=== PATIENT | female | born 1960 | race Caucasian/White ===

== ENCOUNTER 2020-09-22 10:05 | Emergency (ER) | payer OTHER ==
--- NOTE | 2020-09-22 10:29 | EDM.PDOC ---
ED HPI GENERAL MEDICAL PROBLEM - General Chief Complaint: Lower Extremity Injury/Pain Stated Complaint: L KNEE PAIN Time Seen by Provider: 09/22/20 10:27 - History of Present Illness INITIAL COMMENTS - FREE TEXT/NARRATIVE: 60-year-old female presents the emergency room with a red painful swollen area on her left lower leg. Patient noticed some redness discomfort and swelling on her left lower leg. This is developed over the last day. This is right over the tibial tuberosity. Patient has not had any fevers or chills. The patient has felt a little ill no nausea or vomiting just has not felt well over the last day. About a week and a half ago the patient had a melanoma removed from her left forearm and the patient is wondering if perhaps this is related. Patient is visiting here from [place]. - Related Data Allergies Allergy/AdvReac Type Severity Reaction Status Date / Time No Known Allergies Allergy Verified 09/22/20 10:17 Home Meds: Home Meds Sulfamethoxazole/Trimethoprim [Bactrim Ds Tablet] 1 each PO BID #20 tablet 09/22/20 [Rx] Past Medical History Oncologic (Cancer) History: Reports: Other (See Below) Other Oncologic History: melanoma - Infectious Disease History Infectious Disease History: Reports: Chicken Pox, Mononucleosis - Past Surgical History Musculoskeletal Surgical History: Reports: Hip Replacement Dermatological Surgical History: Reports: Other (See Below) Social & Family History - Family History Family Medical History: No Pertinent Family History - Tobacco Use Tobacco Use Status *Q: Never Tobacco User - Recreational Drug Use Recreational Drug Use: No Review of Systems - Review of Systems Review Of Systems: See Below Constitutional: Reports: Other (She has not felt well over the last day). Denies: Chills, Fever Respiratory: Reports: No Symptoms Cardiovascular: Reports: No Symptoms GI/Abdominal: Reports: No Symptoms Musculoskeletal: Reports: Leg Pain Neurological: Reports: No Symptoms ED EXAM, GENERAL - Physical Exam Exam: See Below Exam Limited By: No Limitations General Appearance: Alert, No Apparent Distress Head: Atraumatic, Normocephalic Neck: Normal Inspection, Supple, Non-Tender, Full Range of Motion Respiratory/Chest: No Respiratory Distress, Lungs Clear, Normal Breath Sounds Cardiovascular: Regular Rate, Rhythm, No Edema, No Murmur GI/Abdominal: Normal Bowel Sounds, Soft, Non-Tender Back Exam: Normal Inspection. No: CVA Tenderness (L), CVA Tenderness (R) Extremities: Other (Examination of her left leg shows swelling redness over the tibial tuberosity there is a 3 to 4 cm circular area no clear-cut fluctuation. She has a break in the skin that she says was from doing yard work when she was resting on her knees this was a couple weeks ago.) Course - Vital Signs Last Recorded V/S: Last Vital Signs Temp 35.9 C L 09/22/20 10:12 Pulse 74 09/22/20 10:12 Resp 14 09/22/20 10:12 BP 147/86 H 09/22/20 10:12 Pulse Ox 100 09/22/20 10:12 - Orders/Labs/Meds Orders: Active Orders 24 hr Category Date Time Status Tibia Fibula Lt [CR] Stat Exams 09/22/20 10:40 Taken ceFAZolin [Ancef] 2 gm Med 09/22/20 11:58 Active Premix Bag 1 bag IV ONETIME Medication Orders Cefazolin Sodium/Dextrose 2 gm (/ Premix) 50 mls @ 100 mls/hr IV ONETIME ONE Stop: 09/22/20 12:27 Labs: Laboratory Tests 09/22/20 09/22/20 Range/Units 10:45 10:45 WBC 9.40 (3.98-10.04) K/mm3 RBC 5.04 (3.98-5.22) M/mm3 Hgb 15.1 (11.2-15.7) gm/dl Hct 46.8 H (34.1-44.9) % MCV 92.9 (79.4-94.8) fl MCH 30.0 (25.6-32.2) pg MCHC 32.3 (32.2-35.5) g/dl RDW Std Deviation 43.5 (36.4-46.3) fL Plt Count 238 (182-369) K/mm3 MPV 9.6 (9.4-12.3) fl Neut % (Auto) 71.1 (34.0-71.1) % Lymph % (Auto) 18.3 L (19.3-51.7) % [place] % (Auto) 9.0 (4.7-12.5) % Eos % (Auto) 1.0 (0.7-5.8) Baso % (Auto) 0.5 (0.1-1.2) % Neut # (Auto) 6.68 H (1.56-6.13) K/mm3 Lymph # (Auto) 1.72 (1.18-3.74) K/mm3 [place] # (Auto) 0.85 H (0.24-0.36) K/mm3 Eos # (Auto) 0.09 (0.04-0.36) K/mm3 Baso # (Auto) 0.05 (0.01-0.08) K/mm3 Sodium 140 (136-145) mEq/L Potassium 3.9 (3.5-5.1) mEq/L Chloride 103 (98-107) mEq/L Carbon Dioxide 27 (21-32) mEq/L Anion Gap 13.9 (5-15) BUN 13 (7-18) mg/dL Creatinine 0.9 (0.55-1.02) mg/dL Est Cr Clr Drug Dosing 58.32 mL/min Estimated GFR (MDRD) > 60 (>60) mL/min BUN/Creatinine Ratio 14.4 (14-18) Glucose 106 (80-115) mg/dL Calcium 9.0 (8.5-10.1) mg/dL Total Bilirubin 0.6 (0.2-1.0) mg/dL AST 27 (15-37) U/L ALT 49 (14-59) U/L Alkaline Phosphatase 73 (46-116) U/L C-Reactive Protein 4.2 H* (<1.0) mg/dL Total Protein 7.4 (6.4-8.2) g/dl Albumin 3.9 (3.4-5.0) g/dl Globulin 3.5 gm/dL Albumin/Globulin Ratio 1.1 (1-2) Meds: Medications Generic Name Dose Route Start Last Admin Trade Name Freq PRN Reason Stop Dose Admin Cefazolin Sodium/Dextrose 2 gm 50 mls @ 100 mls/hr 09/22/20 11:58 / Premix IV 09/22/20 12:27 ONETIME ONE - Re-Assessments/Exams Free Text/Narrative Re-Assessment/Exam: 09/22/20 12:09 X-ray examination shows some soft tissue swelling over the tibial tuberosity no other acute changes noted on the tib-fib x-rays. I discussed situation with Dr. Willis and we discussed the pros and cons of trying to aspirate the bursa and he did not think it would be all that beneficial to do it. And if the bursa is not already tried to get colonized we may do that by introducing a needle to it. His recommendation is give IV Ancef and then treat with oral Bactrim as an outpatient. I discussed this with the patient. She is from out of town and agrees to return to the emergency room if not improving. Departure - Departure Time of Disposition: 12:12 Disposition: Home, Self-Care 01 Clinical Impression: Bursitis of lower limb, Cellulitis of left leg Clinical Impression: (Ruled Out): Cellulitis and abscess of left leg - Discharge Information Referrals: PCP,Not In Area [Primary Care Provider] - Forms: ED Department Discharge Additional Instructions: Return to the emergency room with any questions problems or worsening symptoms. Return in 24 hours if not improving sooner if getting worse. You have been started on Bactrim, this is an antibiotic take 1 twice daily until all gone start this as soon as you get it. Use warm moist heat over the area every couple hours while awake. This may help. Tylenol as needed for discomfort. Sepsis Event Note (ED) - Evaluation Sepsis Screening Result: No Definite Risk - Focused Exam Vital Signs: Vital Signs Temp Pulse Resp BP Pulse Ox 09/22/20 10:12 35.9 C L 74 14 147/86 H 100 - My Orders Last 24 Hours: My Active Orders 09/22/20 10:40 Tibia Fibula Lt [CR] Stat 09/22/20 11:58 ceFAZolin [Ancef] 2 gm Premix Bag 1 bag IV ONETIME - Assessment/Plan Last 24 Hours: My Active Orders 09/22/20 10:40 Tibia Fibula Lt [CR] Stat 09/22/20 11:58 ceFAZolin [Ancef] 2 gm Premix Bag 1 bag IV ONETIME
[2020-09-22] MEDS ORDERED: ceFAZolin 2 GM in Premix Bag 1 BAG IV ONE (11:58)
--- NOTE | 2020-09-22 12:44 | CR ---
Left tibia and fibula: AP and lateral views of the left tibia and fibula were obtained. Comparison: No previous study. No acute fracture, dislocation or other bony abnormalities appreciated. Small plantar spur is noted. Impression: 1. Small plantar spur. 2. Nothing acute is otherwise seen on 2 view left tibia and fibula study. Diagnostic code #2
== END 2020-09-22 12:52 | disposition home or self-care (01) ==
LOC: JD.ED 10:05
DX: M71.9 Bursopathy, unspecified (principal); L03.116 Cellulitis of left lower limb
CPT/HCPCS: 36415; 73590; 80053; 85025; 86140; 96365; 99283; J0690

== ENCOUNTER 2020-09-26 09:11 | Emergency (ER) | payer OTHER ==
[2020-09-26] MEDS ORDERED: Sodium Chloride 0.9% 10 ML Syringe FLUSH PRN (10:21)
[2020-09-26] MEDS ORDERED: cefTRIAXone 2 GM in Sodium Chloride 0.9% 100 ML IV ONE (10:22)
--- NOTE | 2020-09-26 10:31 | EDM.PDOC ---
ED HPI GENERAL MEDICAL PROBLEM - General Chief Complaint: Lower Extremity Injury/Pain Stated Complaint: SWOLLEN L KNEE Time Seen by Provider: 09/26/20 10:10 Source of Information: Reports: Patient History Limitations: Reports: No Limitations - History of Present Illness INITIAL COMMENTS - FREE TEXT/NARRATIVE: 60-year-old female presents to the ED with increased swelling and redness over the infrapatellar bursa left leg. Patient was seen through the ED on September [address] Elsa Sánchez through our emergency room. He identified that she had erythema tenderness over the infrapatellar bursa measuring 3 to 4 cm. She did receive Ancef 2 g IV and was placed on Bactrim double strength twice daily which she has been on for the last 4 days. In spite of this patient feels that there is increased swelling over the prepatellar bursa and increased redness particularly along the medial aspect of her left leg up to the knee. She states she is perhaps felt a little fatigued. She has no definite fever chills nausea or vomiting. Lab work done at that time revealed a white count of 9.40 with 71% neutrophils on the auto differential. CRP was 4.2 chemistry was otherwise normal. The history suggest that she injured her left knee over the infrapatellar bursa while doing some gardening approximately 2 weeks prior to onset of infection. Note patient had a malignant melanoma removed from her left extensor surface of her mid forearm on September 14. She was wondering if there was some connection to the develop an infection in her left knee. She is concerned because she has had also had a left total hip replacement in the past. She states her mobility is not significantly impaired at this time. Some increased tenderness with full flexion of the knee. Onset: Gradual Onset Date: 09/19/20 Duration: Day(s):, Constant, Getting Worse Location: Reports: Lower Extremity, Left (Erythema of her left lower extremity even since starting antibiotics 4 days ago.) Quality: Reports: Ache Severity: Mild Improves with: Reports: Rest Worsens with: Reports: Movement (Not kneel on the knee.) Context: Reports: Other (SPECT nidus for infection was a superficial scratch abrasion to the area while working in her garden [place] approximately 2 weeks before onset of pain and erythema.). Denies: Activity, Exercise, Lifting, Sick Contact, Trauma Associated Symptoms: Reports: No Other Symptoms, Other (Mild increased fatigue. No definite fever or chills.) Treatments [employer] WORK[employer]: Reports: Other (see below) (He on Bactrim double strength twice daily for 4 days for infection.) Left Knee Pain Score (Numeric/FACES): 3 - Related Data Allergies Allergy/AdvReac Type Severity Reaction Status Date / Time No Known Allergies Allergy Verified 09/26/20 09:25 Home Meds: Home Meds Sulfamethoxazole/Trimethoprim [Bactrim Ds Tablet] 1 each PO BID #20 tablet 09/22/20 [Rx] levoFLOXacin [Levaquin] 500 mg PO DAILY #7 tab 09/26/20 [Rx] Past Medical History Oncologic (Cancer) History: Reports: Other (See Below) Other Oncologic History: melanoma - Infectious Disease History Infectious Disease History: Reports: Chicken Pox, Mononucleosis - Past Surgical History GI Surgical History: Reports: Cholecystectomy Musculoskeletal Surgical History: Reports: Hip Replacement (Left total hip replacement 1 year ago) Dermatological Surgical History: Reports: Other (See Below) Social & Family History - Family History Family Medical History: No Pertinent Family History - Tobacco Use Tobacco Use Status *Q: Never Tobacco User - Caffeine Use Caffeine Use: Reports: Coffee - Recreational Drug Use Recreational Drug Use: No - Living Situation & Occupation Living situation: Reports: Occupation: Employed Review of Systems - Review of Systems Review Of Systems: See Below Constitutional: Reports: Other (Mild fatigue.). Denies: Chills, Diaphoresis, Fever, Weakness Eyes: Reports: No Symptoms Ears: Reports: No Symptoms Nose: Reports: No Symptoms Mouth/Throat: Reports: No Symptoms Respiratory: Reports: No Symptoms Cardiovascular: Reports: No Symptoms GI/Abdominal: Reports: No Symptoms Genitourinary: Reports: No Symptoms Musculoskeletal: Reports: Other (Currently being seen for infected left prepatellar bursa.) Skin: Reports: Other (Development of erythema tenderness and slight swelling of her left lower extremity medial aspects) Neurological: Reports: No Symptoms Psychiatric: Reports: No Symptoms ED EXAM, GENERAL - Physical Exam Exam: See Below Exam Limited By: No Limitations General Appearance: Alert, WD/WN, No Apparent Distress, Other (Temperature is 36.1. Heart rate is 91 and sinus respiratory rate is 18 O2 sats 100% room air BP 142/77.) Eye Exam: Bilateral Eye: Normal Inspection Neck: Normal Inspection, Supple, Non-Tender, Full Range of Motion. No: Lymphadenopathy (L), Lymphadenopathy (R) Respiratory/Chest: No Respiratory Distress, Lungs Clear, Normal Breath Sounds, No Accessory Muscle Use Cardiovascular: Normal Peripheral Pulses, Regular Rate, Rhythm, No Edema, No Gallop, No Murmur, No Rub Peripheral Pulses: 3+: Carotid (L), Carotid (R), Posterior Tibial (L), Posterior Tibial (R), Dorsalis Pedis (L), Dorsalis Pedis (R) Extremities: Other (Examination of the left lower extremity reveals a obvious swelling over the infrapatellar bursa which is taut and slightly weight under the skin suggesting abscess formation. The area is warm to palpation. She has diffuse erythema along the medial aspect of the left knee which extends down to the left ankle close to the medial malleolus. This area is also warm to palpation. The tissue of the calf remains fluctuant. No clinical evidence of DVT. This is compatible with a developing cellulitis. Range of motion of the knee was actually pretty good. She has had a left total hip replacement on the left side. No abnormalities detected on right lower extremity exam. On the left upper extremity mid extensor surface of the forearm she has a surgical wound where a maintenance superintendent in [place] removed a malignant melanoma on September 14. The area is erythematous around the wound but is not warm to palpation suggesting any form of infection. Appears to be healing satisfactorily.) Neurological: Alert, Oriented, CN II-XII Intact, Normal Cognition Psychiatric: Normal Affect, Normal Mood Skin Exam: Warm, Dry, Rash (Matas rash medial aspect left lower extremity from knee to medial malleolus compatible with a developing cellulitis. Infected left infrapatellar bursa evident.) ED JOINT ASPIRATION PROCEDURE - Joint Apsiration/Arthrocentesis Site: Left infrapatellar bursa Skin prep: Saline Local Anesthesia - Bupivicaine (Marcaine): 0.5% Plain (0.5% bupivacaine) Local Anesthetic Volume: Other (6mls) Aspiration needle size: 18g Aspirate appearance: serous, sanguinous Aspirate amount in cc's: 25 (Synovial fluid was sent for culture and sensitiv ity.) Dressing: adhesive dressing Complications: No Course - Vital Signs Last Recorded V/S: Last Vital Signs Temp 36.1 C 09/26/20 09:22 Pulse 91 09/26/20 09:22 Resp 18 09/26/20 09:22 BP 142/77 H 09/26/20 09:22 Pulse Ox 100 09/26/20 09:22 - Orders/Labs/Meds Orders: Active Orders 24 hr Category Date Time Status CULTURE ANAEROBIC + SMEAR [RM] Stat Lab 09/26/20 11:50 Received Sodium Chloride 0.9% [Saline Flush] Med 09/26/20 10:21 Active 10 ml FLUSH ASDIRECTED PRN Peripheral IV Insertion Adult [OM.PC] Stat Oth 09/26/20 10:21 Ordered Medication Orders Sodium Chloride (Saline Flush) 10 ml FLUSH ASDIRECTED PRN PRN Reason: Keep Vein Open Last Admin: 09/26/20 10:33 Dose: 10 ml Documented by: SAMUEL Labs: Laboratory Tests 09/26/20 09/26/20 Range/Units 10:26 10:26 WBC 6.41 (3.98-10.04) K/mm3 RBC 4.66 (3.98-5.22) M/mm3 Hgb 14.0 (11.2-15.7) gm/dl Hct 43.5 (34.1-44.9) % MCV 93.3 (79.4-94.8) fl MCH 30.0 (25.6-32.2) pg MCHC 32.2 (32.2-35.5) g/dl RDW Std Deviation 42.7 (36.4-46.3) fL Plt Count 273 (182-369) K/mm3 MPV 9.6 (9.4-12.3) fl Neut % (Auto) 71.0 (34.0-71.1) % Lymph % (Auto) 15.6 L (19.3-51.7) % [place] % (Auto) 10.6 (4.7-12.5) % Eos % (Auto) 1.9 (0.7-5.8) Baso % (Auto) 0.9 (0.1-1.2) % Neut # (Auto) 4.55 (1.56-6.13) K/mm3 Lymph # (Auto) 1.00 L (1.18-3.74) K/mm3 [place] # (Auto) 0.68 H (0.24-0.36) K/mm3 Eos # (Auto) 0.12 (0.04-0.36) K/mm3 Baso # (Auto) 0.06 (0.01-0.08) K/mm3 Sodium 138 (136-145) mEq/L Potassium 3.8 (3.5-5.1) mEq/L Chloride 102 (98-107) mEq/L Carbon Dioxide 24 (21-32) mEq/L Anion Gap 15.8 H (5-15) BUN 13 (7-18) mg/dL Creatinine 1.0 (0.55-1.02) mg/dL Est Cr Clr Drug Dosing 52.49 mL/min Estimated GFR (MDRD) 56 (>60) mL/min BUN/Creatinine Ratio 13.0 L (14-18) Glucose 99 (80-115) mg/dL Calcium 9.2 (8.5-10.1) mg/dL Total Bilirubin 0.4 (0.2-1.0) mg/dL AST 32 (15-37) U/L ALT 41 (14-59) U/L Alkaline Phosphatase 72 (46-116) U/L C-Reactive Protein 8.4 H* (<1.0) mg/dL Total Protein 7.6 (6.4-8.2) g/dl Albumin 3.7 (3.4-5.0) g/dl Globulin 3.9 gm/dL Albumin/Globulin Ratio 1.0 (1-2) Meds: Medications Generic Name Dose Route Start Last Admin Trade Name Freq PRN Reason Stop Dose Admin Sodium Chloride 10 ml 09/26/20 10:21 09/26/20 10:33 Saline Flush FLUSH 10 ml ASDIRECTED PRN Administration Keep Vein Open Discontinued Medications Generic Name Dose Route Start Last Admin Trade Name Freq PRN Reason Stop Dose Admin Bupivacaine HCl 10 ml 09/26/20 10:34 09/26/20 11:45 Sensorcaine-Mpf 0.5% INJECT 09/26/20 10:35 10 ml ONETIME ONE Administration Ceftriaxone Sodium 2 gm/ 100 mls @ 200 mls/hr 09/26/20 10:22 09/26/20 10:32 Sodium Chloride IV 09/26/20 10:51 200 mls/hr ONETIME ONE Administration - Radiology Interpretation Free Text/Narrative:: 60-year-old female presents to the ED with increased swelling left infrapatellar bursa when compared to 4 days ago. She was seen through the ED on and given Ancef 2 g IV and started on Bactrim double strength twice daily which she has been taking. In spite of this she has developed increased swelling and discomfort in the infrapatellar bursa now is developing erythema along the medial aspect of the left knee calf down to the medial malleolus. Area slightly tender to touch and warm to palpation indicating developing cellulitis. Clinically the patient has pus in her infrapatellar bursa and this will need to be drained. Plan will be due anesthetized the area with good p.o. with a cane and using 18-gauge needle to open up and remove the purulent material. This will be obtained. In the meantime the patient will have routine labs performed i.e. CBC CMP and a CRP. X-rays of the tib-fib were done and were normal. Patient will be given Rocephin 2 g IV. - Re-Assessments/Exams Free Text/Narrative Re-Assessment/Exam: 09/26/20 11:39 White blood Count is normal at 6.41. Differential reveals 71% neutrophils. Hemoglobin is 14.0 with hematocrit of 43.5 and a platelet count of 273,000. Sodium 138 with potassium 3.8 chloride 102 with a bicarb of 24. Anion gap is 15.8. BUN is 13 with a creatinine of 1.0 and a GFR 56. Glucose is 99 calcium is 9.2. Liver function normal C-reactive protein is elevated 8.4 t otal protein 7.6 with an albumin fraction of 3.7. 09/26/20 12:00: Patient underwent drainage of left infrapatellar bursa under local anesthetic using bupivacaine 0.5% x 6 mils. The fluid extracted from the bursa was thick slightly cloudy synovial fluid but no pus identified. Synovial fluid has been sent for culture and sensitivity. Patient has completed her Rocephin 2 g intravenously and labs did not show any signs of systemic illness at this time. She will continue Bactrim double strength tablets twice daily until the prescription is finished and additionally will be taking Levaquin 500 mg tablet once daily for 7 days starting today to bring the cellulitis under control. Her plans are to return back to [place] on Friday she was advised she should expect marked improvement over the next 48 to 72 hours. She may apply heat pack to the leg if needed to relieve discomfort. Motrin 600 mg every 6 hours may be continued. Departure - Departure Time of Disposition: 12:07 Disposition: Home, Self-Care 01 Condition: Fair Clinical Impression: Wound infection, Cellulitis of left leg without foot Bursitis Qualifiers: Bursitis location: knee Knee bursitis location: infrapatellar bursitis Laterality: left Qualified Code(s): M70.52 - Other bursitis of knee, left knee - Discharge Information *PRESCRIPTION DRUG MONITORING PROGRAM REVIEWED*: Not Applicable *COPY OF PRESCRIPTION DRUG MONITORING REPORT IN PATIENT [id number]: Not Applicable Prescriptions: levoFLOXacin [Levaquin] 500 mg PO DAILY #7 tab Instructions: Cellulitis, Adult Referrals: PCP,Not In Area [Primary Care Provider] - Forms: ED Department Discharge Additional Instructions: Evaluation in the emergency room today in regards to increasing swelling left infrapatellar bursa area with increased warmth suggesting underlying infection. Also developing cellulitis or infection under the skin along the left inside of your leg from knee to ankle. Lab test do not reveal any signs of systemic illness which means no bacterial infection in your bloodstream. Markers for infection are still positive with a CRP of 6.2. It was 4.2 when you were seen . Removal of fluid from the infrapatellar bursa carried out under local anesthetic and it proved to be nonpurulent slightly cloudy synovial fluid. Removed approximately 30 mils of fluid. Culture will be obtained although it may not grow out anything as you are currently on antibiotic therapy. You were given further antibiotic intravenously while in the emergency department called Rocephin 2 g which works for the next 24 hours. Continue Bactrim double strength tablets that you are currently on until that prescription is finished and add Levaquin tablet 500 mg once daily starting today and continue for another 6 days to clear up infection left leg. Expect marked improvement over the next 48 hours. Continue Motrin 600 mg every 6 hours as needed for pain relief if needed. Suggest placing antibiotic ointment and a Band-Aid on left knee at site of wound drainage for the next 3 days --just bacitracin ointment. Follow-up with primary care physician if any further problems occur when you get back home. Sepsis Event Note (ED) - Evaluation Sepsis Screening Result: No Definite Risk - Focused Exam Vital Signs: Vital Signs Temp Pulse Resp BP Pulse Ox 09/26/20 09:22 36.1 C 91 18 142/77 H 100 - My Orders Last 24 Hours: My Active Orders 09/26/20 10:21 Sodium Chloride 0.9% [Saline Flush] 10 ml FLUSH ASDIRECTED PRN Peripheral IV Insertion Adult [OM.PC] Stat 09/26/20 11:50 CULTURE ANAEROBIC + SMEAR [RM] Stat - Assessment/Plan Last 24 Hours: My Active Orders 09/26/20 10:21 Sodium Chloride 0.9% [Saline Flush] 10 ml FLUSH ASDIRECTED PRN Peripheral IV Insertion Adult [OM.PC] Stat 09/26/20 11:50 CULTURE ANAEROBIC + SMEAR [RM] Stat
[2020-09-26] MEDS ORDERED: Bupivacaine 0.5% 10 ML SDV INJECT ONE (10:34)
== END 2020-09-26 12:25 | disposition home or self-care (01) ==
LOC: JD.ED 09:11
DX: M70.52 Other bursitis of knee, left knee (principal); L03.116 Cellulitis of left lower limb
CPT/HCPCS: 20610; 36415; 80053; 85025; 86140; 87075; 87205; 96365; 99283; J0696; J3490; J7050